=== PATIENT | male | born 1965 | race Caucasian/White ===

== ENCOUNTER 2022-11-30 22:02 | Emergency (ER) | payer BC ==
[2022-12-01] MEDS ORDERED: Ibuprofen 600 MG Tab PO ONE (00:45)
[2022-12-01] MEDS ORDERED: Azithromycin 250 MG Tab PO ONE (00:45)
== END 2022-12-01 00:53 | disposition home or self-care (01) ==
LOC: MW.ED 22:02
DX: J02.9 Acute pharyngitis, unspecified (principal); Z88.2 Allergy status to sulfonamides
CPT/HCPCS: 87651; 99283; A9270